=== PATIENT | male | born 1985 | race African-American/Black ===

== ENCOUNTER 2017-08-29 08:49 | Emergency (ER) | payer SELFPAY ==
[2017-08-29] MEDS ORDERED: Lidocaine Viscous Sol 2% 15 ml UD Cup ONE (09:32)
[2017-08-29] MEDS ORDERED: Mag-Al 1200 mg/1200 mg/30 ML UDCUP ONE (09:32)
== END 2017-08-29 10:08 | disposition home or self-care (01) ==
LOC: ERS 08:49
DX: K59.00 Constipation, unspecified (principal); K29.70 Gastritis, unspecified, without bleeding; F41.9 Anxiety disorder, unspecified; F32.9 Major depressive disorder, single episode, unspecified; F17.210 Nicotine dependence, cigarettes, uncomplicated
CPT/HCPCS: 99406